=== PATIENT | male | born 1995 | race Caucasian/White ===

== ENCOUNTER 2016-07-03 20:06 | Emergency (ER) | payer SELFPAY ==
[~2016-07-03] VITALS: Ht 180.3 cm; Wt 96.3 kg
[~2016-07-03 20:06] MED LIST: LORTAB 5-325 M1 EACH PO; MEDROL DOSEPAK4 MG PO
[2016-07-03 20:15] VITALS: BP 127/80
[2016-07-03] MEDS ORDERED: ILOTYCIN1 GM LEFT EYE (22:43)
[2016-07-03] MEDS ORDERED: NORCO 5/3251 TABLET PO (22:43)
[2016-07-03] MEDS ORDERED: TOBREX5 ML LEFT EYE (22:43)
== END 2016-07-03 23:20 | disposition home or self-care (01) ==
LOC: EME 20:06
PROC: 08C9XZZ Extirpation of Matter from Left Cornea, External Approach (ICD-10-PCS; principal; 2016-07-03)
PROC: 3E0234Z Introduction of Serum, Toxoid and Vaccine into Muscle, Percutaneous Approach (ICD-10-PCS; principal; 2016-07-03)
DX: T15.02XA Foreign body in cornea, left eye, initial encounter (principal)
CPT/HCPCS: 99281; 99284

== ENCOUNTER 2017-01-08 22:35 | Emergency (ER) | payer SELFPAY ==
[~2017-01-08] VITALS: Ht 180.3 cm; Wt 98.0 kg
[~2017-01-08 22:35] MED LIST changes: +ILOTYCIN1 GM LEFT EYE; +NORCO 5/3251 TABLET PO; +TOBREX5 ML LEFT EYE
[2017-01-09 00:48] VITALS: BP 140/81
== END 2017-01-09 00:50 | disposition home or self-care (01) ==
LOC: EME 22:35
PROC: 0CQ1XZZ Repair Lower Lip, External Approach (ICD-10-PCS; principal; 2017-01-08)
DX: S01.511A Laceration without foreign body of lip, initial encounter (principal); W20.8XXA Other cause of strike by thrown, projected or falling object, initial encounter; F17.200 Nicotine dependence, unspecified, uncomplicated
CPT/HCPCS: 99281; 99284

== ENCOUNTER 2017-01-15 18:14 | Emergency (ER) | payer OTHER ==
[~2017-01-15] VITALS: Ht 180.3 cm; Wt 96.1 kg
[2017-01-15 19:37] VITALS: BP 137/72
== END 2017-01-15 19:37 | disposition home or self-care (01) ==
LOC: EME 18:14
DX: S01.511D Laceration without foreign body of lip, subsequent encounter (principal); W20.8XXD Other cause of strike by thrown, projected or falling object, subsequent encounter; F17.200 Nicotine dependence, unspecified, uncomplicated
CPT/HCPCS: 99281; 99283